=== PATIENT | male | born 1980 | race Hispanic/Latino ===

== ENCOUNTER 2018-04-21 08:49 | Day surgery (SDC) | payer BC ==
[~2018-04-21 08:49] MED LIST: FENTANYL CITR 100 MCG/2 ML ONE; MIDAZOLAM HCL 2 MG/2 ML INJ ONE; ONDANSETRON HCL 40 MG/20 ML VIAL ONE; PROPOFOL 200 MG/20 ML VIAL IV ONE
[2018-04-21 08:54] LABS: Absolute Lymphocytes (CBC) 4.4 K/uL (0.7-4.9); Absolute Monocytes 0.9 K/uL (0.1-1.3); Absolute Neutrophil 7.5 K/uL (1.8-8.0); Basophils % 0.7 % (0-1.3); Eosinophils % 4.5 % (0-4.4); Lymphocytes % 32.6 % (15.3-44.8); MCH 30.4 pg (27.0-35.0); MCV 89.7 fL (80-100); MPV 8.5 fL (7.6-11.3); Monocytes % 6.9 % (3.3-12.3); RBC Red Blood Cell Count 5.02 M/uL (4.33-5.43)
[2018-04-21 09:02] LABS: BUN Blood Urea Nitrogen 12 mg/dL (6-20); Bicarbonate 27 mEq/L (21-31); Glucose Level 112 mg/dL (65-120); Potassium 3.4 mEq/L (3.6-5.0); Sodium Level 138 mEq/L (135-145)
[2018-04-21] MEDS ORDERED: CEFAZOLIN/SWI 1gm 1 GM/10 ML SYR ONE (09:11)
[2018-04-21] MEDS ORDERED: Ringers Lactate 1,000 ML IV ONE (09:11)
[2018-04-21] MEDS ORDERED: PROPOFOL 200 MG/20 ML VIAL IV ONE (09:26)
[2018-04-21] MEDS ORDERED: FENTANYL CITR 100 MCG/2 ML ONE (09:43)
--- NOTE | 2018-04-21 10:05 | P.BOP ---
Preoperative diagnosis: right inner thigh infected subcutaneous mass with abscess Postoperative diagnosis: same Primary procedure: Excisonal biopsy infected right inner thigh subcutaneous mass 5x3cm Secondary procedure: with drinage of abscess Estimated blood loss: <10cc Specimen: mass with culture of abscess Findings: mass with complex abscess Anesthesia: General Complications: None Drain(s): Other Transferred to: Recovery Room Condition: Good
[2018-04-21] MEDS ORDERED: PROMETHAZINE 25 MG/ML VIAL ONE (10:10)
[2018-04-21] MEDS ORDERED: MEPERIDINE HCL 25 MG/0.5 ML ONE ×3 (10:10→10:39)
--- NOTE | 2018-04-21 10:24 | RAD REPORT ---
EXAM DESCRIPTION: RAD - Chest Pa And Lat (2 Views) - 04/21/2018 8:48 am CLINICAL HISTORY: Preop chest, pending soft tissue abscess drainage in repair COMPARISON: March 2014 TECHNIQUE: PA and lateral views of the chest were obtained. FINDINGS: The lungs are clear of failure, infiltrate or mass. Lung markings are mildly prominent but stable from prior imaging. Trachea is midline. Heart size is normal and central vasculature is wit hin normal limits. No pleural effusion or pneumothorax seen. No acute bony finding noted. No aorti c abnormality. IMPRESSION: No acute cardiopulmonary process. No significant change from 2013.
[2018-04-21] MEDS ORDERED: CODEINE 30MG/APAP 300MG TAB ONE (11:24)
[2018-04-21 13:51] VITALS: BP 122/65; TEMP 98; O2SAT 95
--- NOTE | 2018-04-21 22:30 | OP ---
Date of Procedure: 04/21/2018 Surgeon: Bernard Avila MD Preoperative Diagnosis: Right inner thigh infected subcutaneous mass with abscess. Postoperative Diagnosis: Right inner thigh infected subcutaneous mass with abscess. Procedure: Excisional biopsy of infected right inner thigh subcutaneous mass, 5 x 3 cm with drainage of an abscess. Specimen: Mass with culture of an abscess. Findings: Complex abscess underneath deep to an infected subcutaneous mass. Indications: This is the case of a 38-year-old patient, who comes to us with a mass in the right inn er thigh region, giving him pain, discomfort, and erythema. The patient was diagnosed with infected subcutaneous mass. The benefits, alternatives, and risks of excision were fully explained to the pat ient, which include but are not limited to infection, bleeding, damage to adjacent structures, anesth esia complication, recurrence, TX, and even . He also understands this may not relieve any symp toms. He might need more than one surgical intervention. He also understands he may require wound c are. He signed a consent. Procedure In Detail: The patient was brought to the operating room, placed in supine position. Anes thesia was done without complication. The right thigh was prepped and draped in a sterile fashion. The area of concern was marked by me and the patient in the holding room. We proceeded to make a wed ge incision. Once we started to make a wedge incision, found this patient to have an associated absc ess with it. We went deep to the mass and we noticed this complex abscess collection with multiple l oculations. Also obtained culture and irrigated. The loculations were explored and opened and the m ass was removed and then the area was packed with wet-to-dry dressing after local anesthetic. The patient tolerated the procedure well. The patient was sent to recovery in sta ble condition. TORIE/NIKO Voice ID: [id number] Report ID: [id number]
--- NOTE | 2018-04-21 22:30 | DS ---
Date of Discharge: 04/21/2018 Diagnosis: Right inner thigh infected subcutaneous mass with abscess. Procedure: Excisional biopsy of infected right inner thigh mass, 5 x 3 cm with drainage of an absces s. Disposition: Home. Activity: As tolerated. No heavy lifting. Followup: Follow up in my office in one week. Call for appointment [phone]. Keep area dry for 24 hours, then may shower. Wet-to-dry dressing with normal saline daily. The states she is going to be able to do the dressing changes and she feels comfortable with that. TORIE/NIKO Voice ID: [id number] Report ID: [id number]
== END 2018-04-21 12:15 | disposition home or self-care (01) ==
LOC: OR 08:49
PROVIDERS: ATTEND Surgery
PROC: 0J9L0ZZ Drainage of Right Upper Leg Subcutaneous Tissue and Fascia, Open Approach (ICD-10-PCS; 2018-04-21)
PROC: 0JBL0ZZ Excision of Right Upper Leg Subcutaneous Tissue and Fascia, Open Approach (ICD-10-PCS; principal; 2018-04-21 09:45)
DX: R22.41 Localized swelling, mass and lump, right lower limb (principal); L02.415 Cutaneous abscess of right lower limb; G47.30 Sleep apnea, unspecified; E66.01 Morbid (severe) obesity due to excess calories; Z72.0 Tobacco use
CPT/HCPCS: 36415; 71046; 80048; 85025; 87070; 87075; 87205; 88304; 88305; J0690; J2175; J2250; J2405; J2550; J3010